=== PATIENT | female | born 1995 | race African-American/Black ===

== ENCOUNTER 2016-08-14 16:14 | Emergency (ER) | payer OTHER ==
[~2016-08-14] VITALS: Ht 167.6 cm; Wt 87.1 kg
[2016-08-14 16:57] LABS: NEG OBC UR NEG; POS OBC UR POS
[2016-08-14 16:59] LABS: BILIRUBIN,URINE SMALL (NEG); GLUCOSE,URINE NEGATIVE (NEG); NITRITE,URINE NEGATIVE (NEG); PROTEIN,URINE >=300 mg/dL (NEG-TRACE)
[2016-08-14 17:10] LABS: BACTERIA,URINE FEW /HPF (0-FEW); RBC,URINE 0 /HPF (0-2); SQUAMOUS EPITHELIAL CELL,UR MANY /LPF
[2016-08-14] MEDS ORDERED: LIDO:MAALOX:DONNATAL 1:1:1 15 ML SINGLE DOSE SWSW ONE (17:30)
[2016-08-14] MEDS ORDERED: FAMOTIDINE 20 MG TABLET. PO ONE (17:30)
[2016-08-14] MEDS ORDERED: ONDANSETRON ODT 4 MG TAB.RAPDIS PO ONE (17:30)
[2016-08-14] MEDS ORDERED: ONDA4TAB7 PO (18:38)
--- NOTE | 2016-08-14 18:38 | PHYS DOC ---
Past Medical History Past Medical History: No Pertinent History Past Surgical History: No Surgical History Alcohol Use: Occasionally Drug Use: None Adult General Chief Complaint Chief Complaint: SYNCOPE HPI HPI 21-year-old female presents with multiple episodes of nausea and vomiting that started yesterday as well as some mild epigastric tenderness. Patient states she has been able to injuring today but does still feel mildly nauseated with minimal epigastric discomfort. Patient is completely nontoxic in appearance and without significant health problems. She denies any vaginal bleeding. She denies any dysuria or hematuria. Review of Systems Review of Systems Constitutional: Denies fever or chills [] Eyes: Denies change in visual acuity, redness, or eye pain [] HENT: Denies nasal congestion or sore throat [] Respiratory: Denies cough or shortness of breath [] Cardiovascular: No additional information not addressed in HPI [] GI: Has abdominal pain, has nausea, denies vomiting, denies bloody stools or diarrhea [] : Denies dysuria or hematuria [] Musculoskeletal: Denies back pain or joint pain [] Integument: Denies rash or skin lesions [] Neurologic: Denies headache, focal weakness or sensory changes [] Endocrine: Denies polyuria or polydipsia [] Current Medications Current Medications Current Medications Medications (Trade) Dose Ordered Sig/Radha Start Time Stop Time Status Last Admin Dose Admin Famotidine (Pepcid) 20 mg 1X ONCE 08/14/16 17:30 08/14/16 17:31 DC 08/14/16 18:05 20 MG Multi-Ingredient Mouthwash/Gargle (Gi Cocktail Single Dose) 15 ml 1X ONCE 08/14/16 17:30 08/14/16 17:31 DC 08/14/16 18:06 15 ML Ondansetron HCl (Zofran Odt) 4 mg 1X ONCE 08/14/16 17:30 08/14/16 17:31 DC 08/14/16 18:05 4 MG Allergies Allergies Allergies Coded Allergies Type Severity Reaction Last Updated Verified No Known Drug Allergies 11/03/15 No Physical Exam Physical Exam Constitutional: Well developed, well nourished, no acute distress, non-toxic appearance. [] HENT: Normocephalic, atraumatic, bilateral external ears normal, oropharynx moist, no oral exudates, nose normal. [] Eyes: PERRLA, EOMI, conjunctiva normal, no discharge. [] Neck: Normal range of motion, no tenderness, supple, no stridor. [] Cardiovascular:Heart rate regular rhythm, no murmur [] Lungs & Thorax: Bilateral breath sounds clear to auscultation [] Abdomen: Bowel sounds normal, soft, moderate epigastric tenderness, no masses, no pulsatile masses. [] Skin: Warm, dry, no erythema, no rash. [] Back: No tenderness, no CVA tenderness. [] Extremities: No tenderness, no cyanosis, no clubbing, ROM intact, no edema. [] Neurologic: Alert and oriented X 3, normal motor function, normal sensory function, no focal deficits noted. [] Psychologic: Affect normal, judgement normal, mood normal. [] Current Patient Data Vital Signs Vital Signs Date Time Temp Pulse Resp B/P Pulse Ox O2 Delivery O2 Flow Rate FiO2 08/14/16 16:41 98.5 86 16 125/74 99 Room Air 98.5 Lab Values Laboratory Tests Test 08/14/16 16:47 Urine Collection Type Unknown Urine Color Dk yellow Urine Clarity Hazy Urine pH 6.0 Urine Specific Hegins 1.025 Urine Protein >=300mg/dL (NEG-TRACE) Urine Glucose (UA) Negativemg/dL (NEG) Urine Ketones (Stick) Tracemg/dL (NEG) Urine Blood Negative (NEG) Urine Nitrite Negative (NEG) Urine Bilirubin Small (NEG) Urine Urobilinogen Dipstick 1.0mg/dL (0.2 mg/dL) Urine Leukocyte Esterase Moderate (NEG) Urine RBC 0/HPF (0-2) Urine WBC 11-20/HPF (0-4) Urine Squamous Epithelial Cells Many/LPF Urine Bacteria Few/HPF (0-FEW) Urine Mucus Marked/LPF Urine Test Negative (NEG) EKG EKG EKG as interpreted by me reveals a sinus rhythm with a rate 73. There are no acute ST findings. Radiology/Procedures Radiology/Procedures [] Course & Med Decision Making Course & Med Decision Making Pertinent Labs and Imaging studies reviewed. (See chart for details) This 21-year-old female is currently nontoxic in appearance will be discharged from the hospital with a course of Zofran and strict instructions to remain well -hydrated at home. There is no indication at this time to perform any laboratory workup. Patient is able to tolerate oral fluids. Patient feels much improved after GI cocktail and Pepcid. She'll be discharged to follow closely with her primary physician next few days for symptom resolution. I believe her symptoms are likely related to a mild gastritis. Duy Disclaimer Duy Disclaimer This electronic medical record was generated, in whole or in part, using a voice recognition dictation system. Departure Departure Impression: Primary Impression: Gastritis Additional Impression: Abdominal pain Disposition: HOME, SELF-CARE Admitting Physician: Other Condition: STABLE Referrals: NO PCP (PCP) Patient Instructions: Abdominal Pain (Nonspecific) Additional Instructions: Please take your zofran as prescribed and continue to stay well hydrated. Continue to drink plenty of fluids. Follow up with your primary doctor in the next 2-3 days. Scripts Ondansetron Hcl (Zofran)4 Mg Tablet4 Mg PO BID PRN NAUSEA/VOMITING #10 TAB Prov:FLAKITA TUCKER DO 08/14/16 Problem Qualifiers FLAKITA TUCKER DO Aug 14, 2016 18:38
[2016-08-14 18:40] VITALS: BP 99/57
--- NOTE | 2016-08-15 06:30 | EKG ---
[facility] [address] [place] [address] Test Date: 2016-08-14 Test Time: 17:00:23 Pat Name: RUTHY HILL Department: Room: Gender: F Envelope Adjuster: : 1995 Requested By: FLAKITA TUCKER Order Number: [id number] Reading MD: Joy Munson Measurements Intervals [place] Rate: 73 P: 54 NM: 142 QRS: 56 QRSD: 76 T: 16 QT: 384 QTc: 427 Interpretive Statements SINUS RHYTHM NO SPECIFIC ECG ABNORMALITIES RI6.01 No previous ECG available for comparison Electronically Signed On 08-17-2016 19:59:38 GUM REMOVER by Joy Munson
== END 2016-08-14 18:54 | disposition home or self-care (01) ==
LOC: ER 16:14
DX: K29.70 Gastritis, unspecified, without bleeding (principal)
CPT/HCPCS: 81001; 81025; 87086; 93005; 99285; Q0162

== ENCOUNTER 2016-10-28 16:27 | Emergency (ER) | payer OTHER ==
[~2016-10-28] VITALS: Ht 167.6 cm; Wt 89.8 kg
[~2016-10-28 16:27] MED LIST: ONDA4TAB7 PO
[2016-10-28 16:48] VITALS: BP 132/79
[2016-10-28] MEDS ORDERED: LIDOCAINE 1%/EPI 1:100,000 20 ML VIAL. INJ ONE (17:30)
[2016-10-28] MEDS ORDERED: DIPHTH,PERTUSS(ACELL),TET TOX 0.5 ML DISP.SYRIN. VAX IM ONE (17:30)
[2016-10-28] MEDS ORDERED: TRAM-29 PO (18:50)
[2016-10-28] MEDS ORDERED: AMOX1TAB11 PO (18:50)
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
== END 2016-10-28 19:02 | disposition home or self-care (01) ==
LOC: ER 16:27
DX: S01.511A Laceration without foreign body of lip, initial encounter (principal); Y04.0XXA Assault by unarmed brawl or fight, initial encounter; Y93.89 Activity, other specified; Y99.8 Other external cause status; Y92.89 Other specified places as the place of occurrence of the external cause
CPT/HCPCS: 12011; 90471; 90715; 99283; J3490

== ENCOUNTER 2016-11-05 19:32 | Emergency (ER) | payer OTHER ==
[~2016-11-05] VITALS: Ht 167.6 cm; Wt 86.2 kg
[~2016-11-05 19:32] MED LIST changes: +AMOX1TAB11 PO; +TRAM-29 PO
[2016-11-05 19:59] VITALS: BP 115/55
--- NOTE | 2016-11-05 20:00 | PHYS DOC ---
Past Medical History Past Medical History: No Pertinent History Past Surgical History: No Surgical History Alcohol Use: Occasionally Drug Use: Marijuana Adult General Chief Complaint Chief Complaint: SUTURE/STAPLE REMOVAL [facility] HPI Patient is a 21 year old female presents emergency Department today requesting sutures be removed from her upper lip. Patient was here 8 days ago for laceration repair. She does not have any current complaints at this time. Review of Systems Review of Systems Constitutional: Denies fever or chills [] Eyes: Denies change in visual acuity, redness, or eye pain [] HENT: Denies nasal congestion or sore throat [] Respiratory: Denies cough or shortness of breath [] Cardiovascular: No additional information not addressed in HPI [] GI: Denies abdominal pain, nausea, vomiting, bloody stools or diarrhea [] : Denies dysuria or hematuria [] Musculoskeletal: Denies back pain or joint pain [] Integument: Denies rash or skin lesions [] Neurologic: Denies headache, focal weakness or sensory changes [] Endocrine: Denies polyuria or polydipsia [] Allergies Allergies Allergies Coded Allergies Type Severity Reaction Last Updated Verified No Known Drug Allergies 11/03/15 No Physical Exam Physical Exam Constitutional: Well developed, well nourished, no acute distress, non-toxic appearance. [] HENT: Normocephalic, atraumatic, bilateral external ears normal, oropharynx moist, no oral exudates, nose normal. Well-healing laceration with sutures in place to her upper lip. There is quite a bit of scab formation over this area. Eyes: PERRLA, EOMI, conjunctiva normal, no discharge. [] Neck: Normal range of motion, no tenderness, supple, no stridor. [] Cardiovascular:Heart rate regular rhythm, no murmur [] Lungs & Thorax: Bilateral breath sounds clear to auscultation [] Abdomen: Bowel sounds normal, soft, no tenderness, no masses, no pulsatile masses. [] Skin: Warm, dry, no erythema, no rash. [] Back: No tenderness, no CVA tenderness. [] Extremities: No tenderness, no cyanosis, no clubbing, ROM intact, no edema. [] Neurologic: Alert and oriented X 3, normal motor function, normal sensory function, no focal deficits noted. [] Psychologic: Affect normal, judgement normal, mood normal. [] Current Patient Data Vital Signs Vital Signs Date Time Temp Pulse Resp B/P Pulse Ox O2 Delivery O2 Flow Rate FiO2 11/05/16 19:59 97.8 75 18 97 Room Air 97.8 EKG EKG [] Radiology/Procedures Radiology/Procedures Procedure note: 6, 6-O nylon sutures were removed from patient's upper lip without difficulty. There was no wound margin separation, purulent drainage, erythema or swelling. Patient tolerated the procedure well. Course & Med Decision Making Course & Med Decision Making Pertinent Labs and Imaging studies reviewed. (See chart for details) [] Dragon Disclaimer Dragon Disclaimer This electronic medical record was generated, in whole or in part, using a voice recognition dictation system. Departure Departure Impression: Primary Impression: Visit for suture removal Disposition: 01 HOME, SELF-CARE Condition: IMPROVED Referrals: NO PCP (PCP) Patient Instructions: Suture Removal-Brief Additional Instructions: 1. Review the discharge instructions provided for self-care and reasons to return the emergency department. 2. Follow-up with primary care provider if any questions or concerns about your continued wound healing. CHEO RILEY Nov 05, 2016 20:00
== END 2016-11-05 20:30 | disposition home or self-care (01) ==
LOC: ER 19:32
DX: S01.511D Laceration without foreign body of lip, subsequent encounter (principal); F12.10 Cannabis abuse, uncomplicated; W45.8XXD Other foreign body or object entering through skin, subsequent encounter; Y93.89 Activity, other specified; Y92.89 Other specified places as the place of occurrence of the external cause; Y99.8 Other external cause status
CPT/HCPCS: 99281

== ENCOUNTER 2017-07-04 19:06 | Emergency (ER) | payer OTHER ==
[~2017-07-04] VITALS: Ht 167.6 cm; Wt 86.2 kg
[~2017-07-04 19:06] MED LIST changes: -TRAM-29 PO; +TRAM-48 PO
[2017-07-04 19:10] VITALS: BP 135/73
[2017-07-04] MEDS ORDERED: METH4TAB2 PO (19:30)
[2017-07-04] MEDS ORDERED: CYCL10TA2 PO (19:30)
[2017-07-04] MEDS ORDERED: IBUP-1060 PO (19:30)
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
== END 2017-07-04 19:37 | disposition home or self-care (01) ==
LOC: ER 19:06
DX: M25.512 Pain in left shoulder (principal); G89.29 Other chronic pain; F12.10 Cannabis abuse, uncomplicated
CPT/HCPCS: 99283

== ENCOUNTER 2017-08-01 16:13 | Emergency (ER) | payer OTHER ==
[2017-08-01 16:42] LABS: URINE HCG POC HCG NEGATIVE (Negative)
== END 2017-08-01 17:33 | disposition home or self-care (01) ==
LOC: ER 16:13
DX: M54.6 Pain in thoracic spine (principal); M79.602 Pain in left arm; F12.10 Cannabis abuse, uncomplicated
CPT/HCPCS: 73030; 81025; 99284

== ENCOUNTER 2018-04-11 15:27 | Emergency (ER) | payer OTHER ==
[2017-08-01 16:36] VITALS: BP 136/72
[~2018-04-11 15:27] MED LIST changes: +CYCL10TA2 PO; +IBUP-1060 PO; +METH4TAB2 PO; +NAPR-514 PO
== END 2018-04-11 17:40 | disposition left against medical advice (07) ==
LOC: ER 15:27
DX: R10.9 Unspecified abdominal pain (principal); R11.10 Vomiting, unspecified; Z53.21 Procedure and treatment not carried out due to patient leaving prior to being seen by health care provider

== ENCOUNTER 2018-12-27 18:56 | Emergency (ER) | payer OTHER ==
[~2018-12-27] VITALS: Ht 167.6 cm; Wt 77.1 kg
[2018-12-27 19:25] VITALS: BP 123/75
[2018-12-27] MEDS ORDERED: AZITHROMYCIN 250 MG TABLET. PO ONE (20:15)
[2018-12-27] MEDS ORDERED: cefTRIAXone IM 250 MG VIAL IM ONE (20:15)
[2018-12-27 20:53] LABS: BILIRUBIN,URINE SMALL (NEG); CLARITY,URINE CLOUDY; COLOR,URINE YELLOW; NITRITE,URINE NEGATIVE (NEG); PROTEIN,URINE >=300 mg/dL (NEG-TRACE)
[2018-12-27 21:00] LABS: BACTERIA,URINE FEW /HPF (0-FEW); RBC,URINE 0 /HPF (0-2); SQUAMOUS EPITHELIAL CELL,UR OCC /LPF
[2018-12-27 21:01] LABS: AMORPHOUS SEDIMENT,UR PRESENT /HPF
[2018-12-27] MEDS ORDERED: METR500T PO (21:12)
--- NOTE | 2018-12-27 21:12 | PHYS DOC ---
Past Medical History Past Medical History: No Pertinent History (EDWIN CAMARA) Past Surgical History: No Surgical History (EDWIN CAMARA) Alcohol Use: Occasionally Drug Use: Marijuana Social History Narrative: Last THC use today 12/27/18 (EDWIN CAMARA) Adult General Chief Complaint Chief Complaint: VAGINAL PROBLEM HPI HPI Patient is a 23 year old F who is here with white vaginal discharge and B labia pain. She states it has been going on for over a week but she is concerned it is getting worse. She has had a new sexual partner so was concerned about STDs. She is currently not on control pills. Her LMP was mid November. (EDWIN CAMARA) Review of Systems Review of Systems Constitutional: Denies fever or chills Respiratory: Denies cough or shortness of breath Cardiovascular: Denies chest pain. GI: Denies abdominal pain, nausea, vomiting, bloody stools or diarrhea. Reports constipation : Denies dysuria or hematuria. Reports vaginal discharge and vaginal pain. Musculoskeletal: Denies back pain or joint pain Integument: Denies rash or skin lesions Neurologic: Denies headache, focal weakness or sensory changes Endocrine: Denies polyuria or polydipsia All other systems were reviewed and found to be within normal limits, except as documented in this note. (EDWIN CAMARA) Current Medications Current Medications Current Medications Medications (Trade) Dose Ordered Sig/Radha Start Time Stop Time Status Last Admin Dose Admin Azithromycin (Zithromax) 1,000 mg 1X ONCE 12/27/18 20:15 12/27/18 20:18 DC 12/27/18 20:43 1,000 MG Ceftriaxone Sodium (Rocephin Im) 250 mg 1X ONCE 12/27/18 20:15 12/27/18 20:18 DC 12/27/18 20:44 250 MG (ALESSIO CARLSON MD) Allergies Allergies Allergies Coded Allergies Type Severity Reaction Last Updated Verified No Known Drug Allergies 11/03/15 No (ALESSIO CARLSON MD) Physical Exam Physical Exam Constitutional: Well developed, well nourished, no acute distress, non-toxic appearance. HENT: Normocephalic, atraumatic Neck: Normal range of motion, no tenderness, supple, no stridor. Cardiovascular:Heart rate regular rhythm, no murmur Lungs & Thorax: Bilateral breath sounds clear to auscultation Abdomen: Bowel sounds normal, soft, no tenderness, no masses, no pulsatile masses. Skin: Warm, dry, no erythema, no rash. Back: No tenderness, no CVA tenderness. Neurologic: Alert and oriented X 3 Psychologic: Affect normal, judgement normal, mood normal. : Associate Automation Engineer present: Ester, labia mildly inflamed, white thick discharge noted, no cervical motion tenderness and no adnexal tenderness, no lesions or sores noted. (EDWIN CAMARA) Current Patient Data Vital Signs Vital Signs Date Time Temp Pulse Resp B/P (MAP) Pulse Ox O2 Delivery O2 Flow Rate FiO2 12/27/18 19:25 98.4 87 15 123/75 (91) 97 Room Air 98.4 (ALESSIO CARLSON MD) Lab Values Laboratory Tests Test 12/27/18 20:40 12/27/18 20:47 Urine Color Yellow Urine Clarity Cloudy Urine pH 6.0 Urine Specific [place] 1.020 Urine Protein >=300 mg/dL (NEG-TRACE) Urine Glucose (UA) Negative mg/dL (NEG) Urine Ketones (Stick) Negative mg/dL (NEG) Urine Blood Negative (NEG) Urine Nitrite Negative (NEG) Urine Bilirubin Small (NEG) Urine Urobilinogen Dipstick 1.0 mg/dL (0.2 mg/dL) Urine Leukocyte Esterase Small (NEG) Urine RBC 0 /HPF (0-2) Urine WBC 5-10 /HPF (0-4) Urine Squamous Epithelial Cells Occ /LPF Urine Amorphous Sediment Present /HPF Urine Bacteria Few /HPF (0-FEW) Urine Mucus Slight /LPF POC Urine HCG, Qualitative Hcg negative (Negative) Microbiology 12/27/18 Wet Prep - Final, Complete (ALESSIO CARLSON MD) EKG EKG [] (EDWNI CAMARA) Radiology/Procedures Radiology/Procedures [] (EDWIN CAMARA) Course & Med Decision Making Course & Med Decision Making Pertinent Labs and Imaging studies reviewed. (See chart for details) Pt treated with Rocephin 250mg IM and Azithromycin 1000mg PO. Discussed that STD tests are pending and she will be contacted if they are positive. Pt did test positive for BV here in ER, which could be source of discharge and discomfort. Will treat with Flagyl and have recommended f/u with PCP or fibreglass laminator for recheck. Pt's urine is contaminated and no sign of acute infection, neg test. Pt did mention that she has been constipated and have recommended OTC Miralax. (EDWIN CAMARA) Course & Med Decision Making Staff Physician Addendum: I was working in the ER during the course of this patient's visit. I was available for consultation as needed, but I was not directly involved in the care of this patient. (ALESSIO CARLSON MD) Dragon Disclaimer Dragon Disclaimer This electronic medical record was generated, in whole or in part, using a voice recognition dictation system. (EDWIN CAMARA) Departure Departure Impression: Primary Impression: Bacterial vaginitis Additional Impression: Concern about STD in female without diagnosis Disposition: HOME, SELF-CARE Condition: STABLE Referrals: MELISSA ALEMAN MD (PCP) Patient Instructions: Bacterial Vaginosis, [id number], Sexually Transmitted Disease Additional Instructions: You were tested for Gonorrhea, Chlamydia and Trichomonas today and those results are pending. You were treated with antibiotics that cover either Gonorrhea or Chlamydia. Your tests today showed positive for Bacterial Vaginosis, which is not an STD but similar to yeast in that it can cause discomfort and discharge. Scripts Metronidazole (FLAGYL) 500 Mg Tablet 1 TAB PO BID, #14 TAB Prov: EDWIN CAMARA 12/27/18 Problem Qualifiers EDWIN CAMARA Dec 27, 2018 21:12 ALESSIO CARLSON MD Dec 28, 2018 04:56
[2018-12-30 19:15] LABS: GC PROBE Negative (Negative)
== END 2018-12-27 21:21 | disposition home or self-care (01) ==
LOC: ER 18:56
DX: N76.0 Acute vaginitis (principal); B96.89 Other specified bacterial agents as the cause of diseases classified elsewhere; R10.2 Pelvic and perineal pain
CPT/HCPCS: 81001; 81025; 87086; 87491; 87591; 96372; 99284; J0696; Q0111; Q0144

== ENCOUNTER 2019-08-16 12:38 | Emergency (ER) | payer OTHER ==
[~2019-08-16 12:38] MED LIST changes: +METR500T PO
== END 2019-08-16 13:15 | disposition left against medical advice (07) ==
LOC: ER 12:38
DX: O46.90 Antepartum hemorrhage, unspecified, unspecified trimester (principal); Z3A.00 Weeks of gestation of pregnancy not specified; Z53.21 Procedure and treatment not carried out due to patient leaving prior to being seen by health care provider

== ENCOUNTER 2019-08-16 14:55 | Emergency (ER) | payer OTHER ==
[~2019-08-16] VITALS: Ht 167.6 cm; Wt 86.3 kg
[2019-08-16 15:17] LABS: BILIRUBIN,URINE NEGATIVE (NEG); CLARITY,URINE CLOUDY; COLOR,URINE YELLOW; NITRITE,URINE NEGATIVE (NEG); PROTEIN,URINE NEGATIVE (NEG-TRACE); UROBILINOGEN,URINE 0.2 mg/dL (0.2 mg/dL)
[2019-08-16 15:33] LABS: BASO % 1 % (0-3); EOS # 0.2 x10^3/uL (0.0-0.7); EOS % 3 % (0-3); HEMOGLOBIN 13.2 g/dL (12.0-15.5); LYMPH % 41 % (24-48); MEAN CORPUSCULAR HEMOGLOBIN 31 pg (25-35); MEAN CORPUSCULAR HGB CONC 34 g/dL (31-37); MEAN CORPUSCULAR VOLUME 93 fL (79-100); MONO # 0.3 x10^3/uL (0.0-1.1); MONO % 7 % (0-9); NEUT # 2.5 x10^3/uL (1.8-7.7); NEUT % 49 % (31-73); PLATELET COUNT 176 x10^3/uL (140-400); RED CELL DISTRIBUTION WIDTH 12.5 % (11.5-14.5)
--- NOTE | 2019-08-16 15:33 | PHYS DOC ---
Past Medical History Past Medical History: No Pertinent History Past Surgical History: No Surgical History Alcohol Use: Occasionally Drug Use: Marijuana Adult General Chief Complaint Chief Complaint: VAGINAL BLEEDING HPI HPI Patient is a 24 year old female who presents with patient went to her primary care doctor yesterday and was treated for sexual transmitted diseases. Patient is states her last period was in May. She states she has a appointment Thursday at with a OB doctor for the first time. Patient states since June she's had vaginal spotting. She states that it comes and goes throughout the day. She states she will wear a pad at times. She denies any abdominal pain, nausea, vomiting, fever, back pain, dysuria, chest pain, shortness of air. Review of Systems Review of Systems : Vaginal bleeding. Denies dysuria or hematuria [] All other systems were reviewed and found to be within normal limits, except as documented in this note. Allergies Allergies Allergies Coded Allergies Type Severity Reaction Last Updated Verified No Known Drug Allergies 11/03/15 No Physical Exam Physical Exam Constitutional: Well developed, well nourished, no acute distress, non-toxic appearance. [] HENT: Normocephalic, atraumatic, bilateral external ears normal, oropharynx mois t, no oral exudates, nose normal. [] Eyes: PERRLA, EOMI, conjunctiva normal, no discharge. [] Neck: Normal range of motion, no tenderness, supple, no stridor. [] Cardiovascular:Heart rate regular rhythm, no murmur [] Lungs & Thorax: Bilateral breath sounds clear to auscultation [] Abdomen: Bowel sounds normal, soft, no tenderness, no masses, no pulsatile masses. [] Skin: Warm, dry, no erythema, no rash. [] Back: No tenderness, no CVA tenderness. [] Extremities: No tenderness, no cyanosis, no clubbing, ROM intact, no edema. [] Neurologic: Alert and oriented X 3, normal motor function, normal sensory function, no focal deficits noted. [] Psychologic: Affect normal, judgement normal, mood normal. Normal Physical Exam [] Current Patient Data Vital Signs Vital Signs Date Time Temp Pulse Resp B/P (MAP) Pulse Ox O2 Delivery O2 Flow Rate FiO2 08/16/19 15:05 98.1 94 16 130/58 (82) 100 Room Air 98.1 Lab Values Laboratory Tests Test 1/21/20 14:58 08/16/19 15:10 08/16/19 15:15 Urine Collection Type Unknown Urine Color Yellow Urine Clarity Cloudy Urine pH 7.0 Urine Specific [place] 1.010 Urine Protein Negative mg/dL (NEG-TRACE) Urine Glucose (UA) Negative mg/dL (NEG) Urine Ketones (Stick) Negative mg/dL (NEG) Urine Blood Large (NEG) Urine Nitrite Negative (NEG) Urine Bilirubin Negative (NEG) Urine Urobilinogen Dipstick 0.2 mg/dL (0.2 mg/dL) Urine Leukocyte Esterase Negative (NEG) Urine RBC 0 /HPF (0-2) Urine WBC 0 /HPF (0-4) Urine Squamous Epithelial Cells Occ /LPF Urine Bacteria 0 /HPF (0-FEW) POC Urine HCG, Qualitative Hcg positive (Negative) White Blood Count 5.0 x10^3/uL (4.0-11.0) Red Blood Count 4.20 x10^6/uL (3.50-5.40) Hemoglobin 13.2 g/dL (12.0-15.5) Hematocrit 39.0 % (36.0-47.0) Mean Corpuscular Volume 93 fL (79-100) Mean Corpuscular Hemoglobin 31 pg (25-35) Mean Corpuscular Hemoglobin Concent 34 g/dL (31-37) Red Cell Distribution Width 12.5 % (11.5-14.5) Platelet Count 176 x10^3/uL (140-400) Neutrophils (%) (Auto) 49 % (31-73) Lymphocytes (%) (Auto) 41 % (24-48) Monocytes (%) (Auto) 7 % (0-9) Eosinophils (%) (Auto) 3 % (0-3) Basophils (%) (Auto) 1 % (0-3) Neutrophils # (Auto) 2.5 x10^3/uL (1.8-7.7) Lymphocytes # (Auto) 2.0 x10^3/uL (1.0-4.8) Monocytes # (Auto) 0.3 x10^3/uL (0.0-1.1) Eosinophils # (Auto) 0.2 x10^3/uL (0.0-0.7) Basophils # (Auto) 0.0 x10^3/uL (0.0-0.2) Maternal Serum HCG Beta Subunit 123 mIU/mL (0-5) H Sodium Level 139 mmol/L (136-145) Potassium Level 4.2 mmol/L (3.5-5.1) Chloride Level 104 mmol/L (98-107) Carbon Dioxide Level 28 mmol/L (21-32) Anion Gap 7 (6-14) Blood Urea Nitrogen 7 mg/dL (7-20) Creatinine 0.7 mg/dL (0.6-1.0) Estimated GFR (Cockcroft-Gault) 125.5 BUN/Creatinine Ratio 10 (6-20) Glucose Level 77 mg/dL (70-99) Calcium Level 8.5 mg/dL (8.5-10.1) Total Bilirubin 1.1 mg/dL (0.2-1.0) H Aspartate Amino Transferase (AST) 29 U/L (15-37) Alanine Aminotransferase (ALT) 34 U/L (14-59) Alkaline Phosphatase 61 U/L (46-116) Total Protein 7.0 g/dL (6.4-8.2) Albumin 3.8 g/dL (3.4-5.0) Albumin/Globulin Ratio 1.2 (1.0-1.7) Laboratory Tests 08/16/19 15:15 Laboratory Tests 08/16/19 15:15 EKG EKG [] Radiology/Procedures Radiology/Procedures [] Impressions: [facility] [address] [place] [address] IMAGING REPORT Signed PATIENT: RUTHY HILL ACCOUNT: [id number] : 1995 LOCATION: ER AGE: 24 SEX: F EXAM STATUS: REG ER ORD. PHYSICIAN: TERRY OLIVER APRN REASON: vag bleeding PROCEDURE: OB <14 WKS W/TV OB <14 WKS W/TV History: Vaginal bleeding. Comparison: None. Technique: Grayscale and color Doppler imaging of the pelvis was performed using transabdominal and transvaginal technique. Findings: The uterus measures 8.3 x 4.0 x 5.2 cm in length. No evidence of intrauterine gestational sac. Right ovary measures 3.2 x 2.1 x 3.2 cm. The right ovarian complicated follicle measures 1.8 cm. Left ovary measures 2.1 x 1.6 x 2.4 cm and is unremarkable. No adnexal masses are seen. Small amount of free fluid within the posterior cul-de-sac. IMPRESSION: 1. No intrauterine gestational sac is identified, may relate to early . Recommend close interval ultrasound follow-up and serial beta-hCGs. 2. Small complicated free fluid within the pelvis. 3. Small complicated right ovarian follicle. Electronically signed by: Brittanie Flores DO (08/16/2019 4:34 PM) [id number] DICTATED and SIGNED BY: BRITTANIE FLORES DO DATE: 08/16/19 1634 Course & Med Decision Making Course & Med Decision Making Abdomen is soft and nontender. Alert and oriented. Skin pink warm and dry. Vital signs within normal limits. Denies any dizziness or headaches. She states that she's been having the spotting since June but she's never been checked out for before. She states she is was given a ultrasound done today but had to be rescheduled. Denies any pain. I have gone over US findings with Dr Batista. Patient to follow up with her OB as scheduled on Thursday. 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 Bimanual: No adnexal masses or tenderness, No CMT Dragon Disclaimer Dragon Disclaimer This electronic medical record was generated, in whole or in part, using a voice recognition dictation system. Departure Departure Impression: Primary Impression: Ovarian cyst Additional Impression: Vaginal bleeding during Disposition: HOME, SELF-CARE Condition: STABLE Referrals: UNKNOWN PCP NAME (PCP) Patient Instructions: Ovarian Cyst, [id number], Vaginal Bleeding During , First Trimester Additional Instructions: Follow-up with her OB as scheduled. Drink plenty of fluids. Do not have any sexual intercourse until you are seen by her OB doctor. Problem Qualifiers Primary Impression: Ovarian cyst Laterality: right Qualified Codes: N83.201 - Unspecified ovarian cyst, right side TERRY OLIVER APRN Aug 16, 2019 15:33
[2019-08-16 15:50] LABS: BACTERIA,URINE 0 /HPF (0-FEW); RBC,URINE 0 /HPF (0-2); SQUAMOUS EPITHELIAL CELL,UR OCC /LPF; WBC,URINE 0 /HPF (0-4)
[2019-08-16 15:57] LABS: CALCIUM 8.5 mg/dL (8.5-10.1); CREATININE 0.7 mg/dL (0.6-1.0); GFR 125.5; POTASSIUM 4.2 mmol/L (3.5-5.1)
[2019-08-16 16:02] LABS: ALBUMIN 3.8 g/dL (3.4-5.0); ALBUMIN/GLOBULIN RATIO 1.2 (1.0-1.7); TOTAL BILIRUBIN 1.1 mg/dL (0.2-1.0)
[2019-08-16 16:37] VITALS: BP 127/65
--- NOTE | 2019-08-16 16:37 | RAD ---
OB <14 WKS W/TV History: Vaginal bleeding. Comparison: None. Technique: Grayscale and color Doppler imaging of the pelvis was performed using transabdominal and transvaginal technique. Findings: The uterus measures 8.3 x 4.0 x 5.2 cm in length. No evidence of intrauterine gestational sac. Right ovary measures 3.2 x 2.1 x 3.2 cm. The right ovarian complicated follicle measures 1.8 cm. Left ovary measures 2.1 x 1.6 x 2.4 cm and is unremarkable. No adnexal masses are seen. Small amount of free fluid within the posterior cul-de-sac. IMPRESSION: 1. No intrauterine gestational sac is identified, may relate to early . Recommend close interval ultrasound follow-up and serial beta-hCGs. 2. Small complicated free fluid within the pelvis. 3. Small complicated right ovarian follicle. Electronically signed by: Harsh Flores DO (08/16/2019 4:34 PM) [id number]
== END 2019-08-16 16:53 | disposition home or self-care (01) ==
LOC: ER 14:55
DX: O34.81 Maternal care for other abnormalities of pelvic organs, first trimester (principal); N83.201 Unspecified ovarian cyst, right side; O46.91 Antepartum hemorrhage, unspecified, first trimester; Z3A.00 Weeks of gestation of pregnancy not specified
CPT/HCPCS: 36415; 76801; 76817; 80053; 81001; 81025; 84702; 85025; 86850; 86900; 86901; 99285-25

== ENCOUNTER 2019-10-02 15:59 | Emergency (ER) | payer OTHER ==
[~2019-10-02] VITALS: Ht 162.6 cm; Wt 85.0 kg
[2019-10-02] MEDS ORDERED: traMADol 50 MG TABLET PO ONE (16:30)
[2019-10-02] MEDS ORDERED: metroNIDAZOLE 500 MG TABLET PO ONE (16:30)
[2019-10-02] MEDS ORDERED: ONDANSETRON ODT 4 MG TAB.RAPDIS. PO ONE (16:30)
[2019-10-02] MEDS ORDERED: cefTRIAXone IM 250 MG VIAL IM ONE (16:30)
[2019-10-02] MEDS ORDERED: AZITHROMYCIN 250 MG TABLET. PO ONE (16:30)
[2019-10-02 16:36] LABS: BILIRUBIN,URINE NEGATIVE (NEG); CLARITY,URINE CLEAR; COLOR,URINE YELLOW; NITRITE,URINE NEGATIVE (NEG); PH,URINE 6.5; PROTEIN,URINE NEGATIVE (NEG-TRACE)
[2019-10-02 16:43] LABS: BARBITURATES NEG (NEG); BENZODIAZEPINES NEG (NEG); CANNABINOIDS POS (NEG); COCAINE NEG (NEG); METHADONE NEG (NEG); OPIATES NEG (NEG); PHENCYCLIDINE NEG (NEG)
[2019-10-02 16:44] LABS: AMPHETAMINE/METHAMPHETAMINE NEG (NEG)
[2019-10-02 16:48] LABS: BACTERIA,URINE MANY /HPF (0-FEW); RBC,URINE 0 /HPF (0-2); SQUAMOUS EPITHELIAL CELL,UR MANY /LPF
--- NOTE | 2019-10-02 19:11 | RAD ---
Exam: Ultrasound pelvis Indication: Pelvic pain Technique: Real-time grayscale and color Doppler images of the pelvis were obtained by the department practice specialist. Comparisons: None FINDINGS: Uterus measures 8.3 x 4.0 x 3.7 cm. Endometrium is approximately 3 mm in thickness. Right ovary is complex in appearance measuring 6.6 x 6.8 x 5.8 cm. Vascular flow is noted within the right ovary. Left ovary measures 2.0 x 1.9 x 1.6 cm. Vascular flow is noted within the left ovary. Moderate amount of complex free fluid is seen in the pelvis. IMPRESSION: 1. Right ovary has an enlarged and complex appearance measuring 6.6 x 6.8 x 5.8 cm. Vascular flow is seen within the right ovary. 2. Moderate amount of complex free fluid in the pelvis. CT is recommended for further evaluation. 3. Normal sonographic appearance of the uterus and left ovary FOR INTERNAL CODING PURPOSES Critical result: Findings discussed with SHANNON TY at 10/02/2019 7:05 PM. RESULT CODE: (C) Electronically signed by: Louie Gu MD (10/02/2019 7:07 PM) [id number]
[2019-10-02] MEDS ORDERED: MORPHINE SULFATE 10 MG/ML VIAL. IV ONE (19:15)
[2019-10-02] MEDS ORDERED: ONDANSETRON PF 4 MG/2 ML VIAL. IVP ONE (19:15)
[2019-10-02 19:27] LABS: BASO % 0 % (0-3); EOS # 0.1 x10^3/uL (0.0-0.7); EOS % 1 % (0-3); HEMATOCRIT 38.9 % (36.0-47.0); HEMOGLOBIN 13.1 g/dL (12.0-15.5); LYMPH # 1.9 x10^3/uL (1.0-4.8); LYMPH % 26 % (24-48); MEAN CORPUSCULAR HEMOGLOBIN 31 pg (25-35); MEAN CORPUSCULAR HGB CONC 34 g/dL (31-37); MEAN CORPUSCULAR VOLUME 91 fL (79-100); MONO # 0.4 x10^3/uL (0.0-1.1); MONO % 6 % (0-9); NEUT # 4.7 x10^3/uL (1.8-7.7); NEUT % 66 % (31-73); PLATELET COUNT 174 x10^3/uL (140-400); RED BLOOD COUNT 4.29 x10^6/uL (3.50-5.40); RED CELL DISTRIBUTION WIDTH 12.4 % (11.5-14.5)
[2019-10-02] MEDS ORDERED: IOHEXOL 300 MG/ML 100ML VIAL. IV ONE (19:30)
[2019-10-02 19:36] LABS: CALCIUM 8.9 mg/dL (8.5-10.1); CREATININE 0.7 mg/dL (0.6-1.0); GFR 125.5; POTASSIUM 3.8 mmol/L (3.5-5.1)
[2019-10-02 19:42] LABS: ALBUMIN 3.8 g/dL (3.4-5.0); ALBUMIN/GLOBULIN RATIO 1.2 (1.0-1.7); TOTAL BILIRUBIN 1.2 mg/dL (0.2-1.0); TOTAL PROTEIN 6.9 g/dL (6.4-8.2)
--- NOTE | 2019-10-02 20:18 | RAD ---
Exam: CT of abdomen and pelvis with contrast INDICATION: Pelvic pain TECHNIQUE: Sequential axial images through the pelvis obtained only the administration of 75 mL of Omni 300 IV contrast. Sagittal and coronal reformatted images were reconstructed from the axial data and reviewed. Comparisons: Ultrasound same day FINDINGS: Heart size is normal. No pericardial effusion. Visualized lung bases are clear. No pleural effusion. Liver, spleen, pancreas, gallbladder and adrenals are unremarkable. Kidneys demonstrate symmetric enhancement. No perinephric inflammation or hydronephrosis. No renal or ureteral calculi are identified. Bladder is decompressed not well evaluated. Uterus not enlarged. There is a 2 cm cystic lesion at the right adnexa, likely ovarian in etiology. There is redemonstration of enlarged right adnexal mass measuring up to 5.[address] Large and small bowel are unremarkable. Appendix is normal. No free intra-abdominal air. There is a small amount of free fluid noted within the pelvis. No free intra-abdominal air. Abdominal aorta has a normal course and caliber. Abdominal vasculature is patent. No enlarged abdominal lymph nodes are identified. No suspicious osseous lesions or acute fractures. IMPRESSION: Redemonstration of an enlarged right adnexal mass with internal cystic areas. There is only a small amount of free fluid in the pelvis. Findings could relate to intraovarian lesion/hemorrhagic cyst. Short-term follow-up ultrasound to reassess in 3-4 weeks is recommended. Alternatively MRI pelvis with coronal can BE used for follow-up. Exposure: One or more of the following in the visualized dose reduction techniques were utilized for this examination: 1. Automated exposure control 2. Adjustment of the MA and/or KV according to patient size 3. Use of iterative of reconstructive technique Electronically signed by: Louie Gu MD (10/02/2019 8:15 PM) [id number]
[2019-10-02] MEDS ORDERED: TRAM50TA PO (21:14)
--- NOTE | 2019-10-02 21:14 | PHYS DOC ---
Past Medical History Past Medical History: No Pertinent History Past Surgical History: No Surgical History Smoking Status: Never Smoker Alcohol Use: Occasionally Drug Use: Marijuana Adult General Chief Complaint Chief Complaint: VAGINAL PROBLEM HPI HPI Patient is a 24 year old female with no significant medical history who presents to the ED today complaining of 10 out of 10 "pelvic bone pain" that began 1 day ago. Patient denies any exacerbating or relieving factors to her pain. She is thrashing around the bed hard to examine at times. Denies any chance she is . Review of Systems Review of Systems Constitutional: Denies fever or chills [] Eyes: Denies change in visual acuity, redness, or eye pain [] HENT: Denies nasal congestion or sore throat [] Respiratory: Denies cough or shortness of breath [] Cardiovascular: No additional information not addressed in HPI [] GI: Reports pelvic pain. Denies nausea, vomiting, bloody stools or diarrhea [] : Denies dysuria or hematuria [] Musculoskeletal: Denies back pain or joint pain [] Integument: Denies rash or skin lesions [] Neurologic: Denies headache, focal weakness or sensory changes [] All other systems were reviewed and found to be within normal limits, except as documented in this note. Current Medications Current Medications Current Medications Medications (Trade) Dose Ordered Sig/Radha Start Time Stop Time Status Last Admin Dose Admin Azithromycin (Zithromax) 1,000 mg 1X ONCE 10/02/19 16:30 10/02/19 16:31 DC 10/02/19 16:34 1,000 MG Ceftriaxone Sodium (Rocephin Im) 250 mg 1X ONCE 10/02/19 16:30 10/02/19 16:31 DC 10/02/19 16:34 250 MG Iohexol (Omnipaque 300 Mg/ml) 75 ml 1X ONCE 10/02/19 19:30 10/02/19 19:31 DC 10/02/19 19:50 75 ML Metronidazole (Flagyl) 2,000 mg 1X ONCE 10/02/19 16:30 10/02/19 16:31 DC 10/02/19 16:35 2,000 MG Morphine Sulfate (Morphine Sulfate) 5 mg 1X ONCE 10/02/19 19:15 10/02/19 19:26 DC 10/02/19 19:40 5 MG Ondansetron HCl (Zofran Odt) 4 mg 1X ONCE 10/02/19 16:30 10/02/19 16:31 DC 10/02/19 16:35 4 MG Ondansetron HCl (Zofran) 4 mg 1X ONCE 10/02/19 19:15 10/02/19 19:26 DC 10/02/19 19:39 4 MG Tramadol HCl (Ultram) 50 mg 1X ONCE 10/02/19 16:30 10/02/19 16:31 DC 10/02/19 16:35 50 MG Allergies Allergies Allergies Coded Allergies Type Severity Reaction Last Updated Verified No Known Drug Allergies 11/03/15 No Physical Exam Physical Exam Constitutional: Well developed, well nourished, no acute distress, non-toxic a ppearance. [] HENT: Normocephalic, atraumatic, bilateral external ears normal, oropharynx moist, no oral exudates, nose normal. [] Eyes: PERRLA, EOMI, conjunctiva normal, no discharge. [] Neck: Normal range of motion, no tenderness, supple, no stridor. [] Cardiovascular:Heart rate regular rhythm, no murmur [] Lungs & Thorax: Bilateral breath sounds clear to auscultation [] Abdomen: Bowel sounds normal, soft, no tenderness, no masses, no pulsatile masses. [] Pelvic exam External pelvic appears normal, cervix is visualized, appears erythematous, moderate CMT, moderate bilateral adnexal tenderness. Skin: Warm, dry, no erythema, no rash. [] Back: No tenderness, no CVA tenderness. [] Extremities: No tenderness, no cyanosis, no clubbing, ROM intact, no edema. [] Neurologic: Alert and oriented X 3, normal motor function, normal sensory function, no focal deficits noted. [] Psychologic: Flat affect, patient thrashing around in bed Current Patient Data Vital Signs Vital Signs Date Time Temp Pulse Resp B/P (MAP) Pulse Ox O2 Delivery O2 Flow Rate FiO2 10/02/19 19:40 16 100 Room Air 10/02/19 18:08 60 130/61 (84) 10/02/19 16:20 98.0 98.0 Lab Values Laboratory Tests Test 10/02/19 15:28 10/02/19 16:26 10/02/19 19:17 POC Urine HCG, Qualitative Hcg negative (Negative) Urine Collection Type Unknown Urine Color Yellow Urine Clarity Clear Urine pH 6.5 Urine Specific [place] 1.025 Urine Protein Negative mg/dL (NEG-TRACE) Urine Glucose (UA) Negative mg/dL (NEG) Urine Ketones (Stick) Trace mg/dL (NEG) Urine Blood Negative (NEG) Urine Nitrite Negative (NEG) Urine Bilirubin Negative (NEG) Urine Urobilinogen Dipstick 1.0 mg/dL (0.2 mg/dL) Urine Leukocyte Esterase Trace (NEG) Urine RBC 0 /HPF (0-2) Urine WBC 1-4 /HPF (0-4) Urine Squamous Epithelial Cells Many /LPF Urine Bacteria Many /HPF (0-FEW) Urine Mucus Marked /LPF Urine Opiates Screen Neg (NEG) Urine Methadone Screen Neg (NEG) Urine Barbiturates Neg (NEG) Urine Phencyclidine Screen Neg (NEG) Urine Amphetamine/Methamphetamine Neg (NEG) Urine Benzodiazepines Screen Neg (NEG) Urine Cocaine Screen Neg (NEG) Urine Cannabinoids Screen Pos (NEG) Urine Ethyl Alcohol Neg (NEG) White Blood Count 7.0 x10^3/uL (4.0-11.0) Red Blood Count 4.29 x10^6/uL (3.50-5.40) Hemoglobin 13.1 g/dL (12.0-15.5) Hematocrit 38.9 % (36.0-47.0) Mean Corpuscular Volume 91 fL (79-100) Mean Corpuscular Hemoglobin 31 pg (25-35) Mean Corpuscular Hemoglobin Concent 34 g/dL (31-37) Red Cell Distribution Width 12.4 % (11.5-14.5) Platelet Count 174 x10^3/uL (140-400) Neutrophils (%) (Auto) 66 % (31-73) Lymphocytes (%) (Auto) 26 % (24-48) Monocytes (%) (Auto) 6 % (0-9) Eosinophils (%) (Auto) 1 % (0-3) Basophils (%) (Auto) 0 % (0-3) Neutrophils # (Auto) 4.7 x10^3/uL (1.8-7.7) Lymphocytes # (Auto) 1.9 x10^3/uL (1.0-4.8) Monocytes # (Auto) 0.4 x10^3/uL (0.0-1.1) Eosinophils # (Auto) 0.1 x10^3/uL (0.0-0.7) Basophils # (Auto) 0.0 x10^3/uL (0.0-0.2) Sodium Level 136 mmol/L (136-145) Potassium Level 3.8 mmol/L (3.5-5.1) Chloride Level 102 mmol/L (98-107) Carbon Dioxide Level 24 mmol/L (21-32) Anion Gap 10 (6-14) Blood Urea Nitrogen 10 mg/dL (7-20) Creatinine 0.7 mg/dL (0.6-1.0) Estimated GFR (Cockcroft-Gault) 125.5 BUN/Creatinine Ratio 14 (6-20) Glucose Level 90 mg/dL (70-99) Calcium Level 8.9 mg/dL (8.5-10.1) Total Bilirubin 1.2 mg/dL (0.2-1.0) H Aspartate Amino Transferase (AST) 22 U/L (15-37) Alanine Aminotransferase (ALT) 23 U/L (14-59) Alkaline Phosphatase 51 U/L (46-116) Total Protein 6.9 g/dL (6.4-8.2) Albumin 3.8 g/dL (3.4-5.0) Albumin/Globulin Ratio 1.2 (1.0-1.7) Lipase 95 U/L (73-393) Laboratory Tests 10/02/19 19:17 Laboratory Tests 10/02/19 19:17 Microbiology 10/02/19 Wet Prep - Final, Complete EKG EKG [] Radiology/Procedures Radiology/Procedures []PROCEDURE: PELVIS W/TV Exam: Ultrasound pelvis Indication: Pelvic pain Technique: Real-time grayscale and color Doppler images of the pelvis were obtained by the department development chemist. Comparisons: None FINDINGS: Uterus measures 8.3 x 4.0 x 3.7 cm. Endometrium is approximately 3 mm in thickness. Right ovary is complex in appearance measuring 6.6 x 6.8 x 5.8 cm. Vascular flow is noted within the right ovary. Left ovary measures 2.0 x 1.9 x 1.6 cm. Vascular flow is noted within the left ovary. Moderate amount of complex free fluid is seen in the pelvis. IMPRESSION: 1. Right ovary has an enlarged and complex appearance measuring 6.6 x 6.8 x 5.8 cm. Vascular flow is seen within the right ovary. 2. Moderate amount of complex free fluid in the pelvis. CT is recommended for further evaluation. 3. Normal sonographic appearance of the uterus and left ovary FOR INTERNAL CODING PURPOSES Critical result: Findings discussed with SHANNON TY at 10/02/2019 7:05 PM. RESULT CODE: (C) Electronically signed by: Louie Dumont MD (10/02/2019 7:07 PM) [id number] DICTATED and SIGNED BY: LOUIE DUMONT MD DATE: 10/02/191906 PROCEDURE: CT ABD PELV W/ IV CONTRST ONLY Exam: CT of abdomen and pelvis with contrast INDICATION: Pelvic pain TECHNIQUE: Sequential axial images through the pelvis obtained only the administration of 75 mL of Omni 300 IV contrast. Sagittal and coronal reformatted images were reconstructed from the axial data and reviewed. Comparisons: Ultrasound same day FINDINGS: Heart size is normal. No pericardial effusion. Visualized lung bases are clear. No pleural effusion. Liver, spleen, pancreas, gallbladder and adrenals are unremarkable. Kidneys demonstrate symmetric enhancement. No perinephric inflammation or hydronephrosis. No renal or ureteral calculi are identified. Bladder is decompressed not well evaluated. Uterus not enlarged. There is a 2 cm cystic lesion at the right adnexa, likely ovarian in etiology. There is redemonstration of enlarged right adnexal mass measuring up to 5.[address] Large and small bowel are unremarkable. Appendix is normal. No free intra-abdominal air. There is a small amount of free fluid noted within the pelvis. No free intra-abdominal air. Abdominal aorta has a normal course and caliber. Abdominal vasculature is patent. No enlarged abdominal lymph nodes are identified. No suspicious osseous lesions or acute fractures. IMPRESSION: Redemonstration of an enlarged right adnexal mass with internal cystic areas. There is only a small amount of free fluid in the pelvis. Findings could relate to intraovarian lesion/hemorrhagic cyst. Short-term follow-up ultrasound to reassess in 3-4 weeks is recommended. Alternatively MRI pelvis with coronal can BE used for follow-up. Exposure: One or more of the following in the visualized dose reduction techniques were utilized for this examination: 1. Automated exposure control 2. Adjustment of the MA and/or KV according to patient size 3. Use of iterative of reconstructive technique Electronically signed by: Louie Dumont MD (10/02/2019 8:15 PM) [id number] DICTATED and SIGNED BY: LOUIE DUMONT MD DATE: 10/02/192014 Course & Med Decision Making Course & Med Decision Making Pertinent Labs and Imaging studies reviewed. (See chart for details) This is a 24 year old female presenting to the ED today complaining of "pelvic b one pain" since yesterday. Patient noted for moderate CMT on exam, was given standard STD treatment. Pelvic ultrasound noted for -Right ovary has an enlarged and complex appearance measuring 6.6 x 6.8x 5.8 cm. Vascular flow is seen within the right ovary. Moderate amount of complex free fluid in the pelvis. CT is recommended for further evaluation. Normal sonographic appearance of the uterus and left ovary Radiologist called me regarding patient's ultrasound requesting a CAT scan with IV contrast. CT of the abdomen and pelvic -redemonstration of an enlarged right adnexal mass with internal cystic areas. There is only a small amount of free fluid in the pelvis. Findings could relate to intraovarian lesion/hemorrhagic cyst. Short- term follow-up ultrasound to reassess in 3-4 weeks is recommended. Alternatively MRI pelvis with coronal can BE used for follow-up. Above results were discussed with patient. Recommended close follow-up with the [facility] Duy Disclaimer Dragon Disclaimer This electronic medical record was generated, in whole or in part, using a voice recognition dictation system. Departure Departure Impression: Primary Impression: Hemorrhagic cyst of right ovary Disposition: HOME, SELF-CARE Condition: STABLE Referrals: UNKNOWN PCP NAME (PCP) Please follow up with your OBGYN in 1-2 weeks PRIMO WELDON MD Patient Instructions: Ovarian Cyst Additional Instructions: You were evaluated in the emergency room and noted to have a right cyst. Follow-up with the provided [facility] in the next 4 to 6 weeks for a follow-up ultrasound to see if this cyst cleared out. Take the prescribed pain medicine as needed. Scripts Tramadol Hcl (TRAMADOL HCL) 50 Mg Tablet 50 MG PO Q6HRS PRN for PAIN, #20 TAB Prov: SHANNON TY APRN 10/02/19 SHANNON TY APRN Oct 02, 2019:14
[2019-10-02 21:27] VITALS: BP 128/62
== END 2019-10-02 21:35 | disposition home or self-care (01) ==
LOC: ER 15:59
DX: N83.201 Unspecified ovarian cyst, right side (principal)
CPT/HCPCS: 74177; 76830; 76856; 80053; 80307; 81001; 81025; 83690; 85025; 87086; 87491; 87591; 96372; 96374; 96375; 99285; J0696; J2270; J2405; Q0111; Q9967; Q0162

== ENCOUNTER 2020-06-14 16:04 | Emergency (ER) | payer OTHER ==
[~2020-06-14] VITALS: Ht 170.2 cm; Wt 90.0 kg
[~2020-06-14 16:04] MED LIST changes: +TRAM50TA PO
[2020-06-14 16:30] VITALS: BP 120/65
[2020-06-14 16:31] LABS: BILIRUBIN,URINE NEGATIVE (NEG); CLARITY,URINE CLEAR; COLOR,URINE YELLOW; NITRITE,URINE NEGATIVE (NEG); PROTEIN,URINE NEGATIVE (NEG-TRACE)
[2020-06-14 16:43] LABS: BACTERIA,URINE MOD /HPF (0-FEW); RBC,URINE OCC /HPF (0-2)
--- NOTE | 2020-06-14 17:58 | PHYS DOC ---
Past Medical History Past Medical History: No Pertinent History Past Surgical History: No Surgical History Smoking Status: Never Smoker Alcohol Use: Occasionally Drug Use: Marijuana General Adult EDM: Chief Complaint: PAIN ON URINATION HPI: HPI: Patient is a 25 year old female 2 para 1 currently 4 months presenting to the ED today complaining of vaginal discharge for 2 weeks. Patient denies any abdominal pain or bleeding. She states she follows up with her OB for her . Denies any concerns for STDs. Review of Systems: Review of Systems: Constitutional: Denies fever or chills. [] GI: Reports vaginal discharge. Denies abdominal pain, nausea, vomiting, bloody stools or diarrhea. [] : Denies dysuria. [] Musculoskeletal: Denies back pain or joint pain. [] Integument: Denies rash. [] Neurologic: Denies headache, focal weakness or sensory changes. [] Psychiatric: Denies depression or anxiety. [] Heart Score: Risk Factors: Risk Factors: DM, Current or recent (<one month) smoker, HTN, HLP, family history of CAD, obesity. Risk Scores: Score 0 - 3: 2.5% MACE over next 6 weeks - Discharge Home Score 4 - 6: 20.3% MACE over next 6 weeks - Admit for Clinical Observation Score 7 - 10: 72.7% MACE over next 6 weeks - Early Invasive Strategies Allergies: Allergies: Allergies Coded Allergies Type Severity Reaction Last Updated Verified No Known Drug Allergies 11/03/15 No Physical Exam: PE: Constitutional: Well developed, well nourished, no acute distress, non-toxic appearance. [] Abdomen: Bowel sounds normal, soft, no tenderness, no masses, no pulsatile masses. [] Pelvic exam External pelvic appears normal, cervix is visualized, closed, no CMT, no adnexal tenderness, small amount of white discharge in the vaginal vault Skin: Warm, dry, no erythema, no rash. [] Back: No tenderness, no CVA tenderness. [] Extremities: No tenderness, no cyanosis, no clubbing, ROM intact, no edema. [] Neurologic: Alert and oriented X 3, normal motor function, normal sensory function, no focal deficits noted. [] Psychologic: Affect normal, judgement normal, mood normal. [] Current Patient Data: Labs: Laboratory Tests Test 06/14/20 16:08 06/14/20 16:24 Urine Collection Type Unknown Urine Color Yellow Urine Clarity Clear Urine pH 6.0 (<5.0-8.0) Urine Specific [place] 1.025 (1.000-1.030) Urine Protein Negative mg/dL (NEG-TRACE) Urine Glucose (UA) Negative mg/dL (NEG) Urine Ketones (Stick) Negative mg/dL (NEG) Urine Blood Negative (NEG) Urine Nitrite Negative (NEG) Urine Bilirubin Negative (NEG) Urine Urobilinogen Dipstick 1.0 mg/dL (0.2 mg/dL) Urine Leukocyte Esterase Negative (NEG) Urine RBC Occ /HPF (0-2) Urine WBC 1-4 /HPF (0-4) Urine Squamous Epithelial Cells Many /LPF Urine Bacteria Mod /HPF (0-FEW) Urine Mucus Mod /LPF POC Urine HCG, Qualitative Hcg positive (Negative) Microbiology 06/14/20 Wet Prep - Final, Complete EKG: EKG: [] Radiology/Procedures: Radiology/Procedures: [] Course & Med Decision Making: Course & Med Decision Making Pertinent Labs and Imaging studies reviewed. (See chart for details) This is a 25-year-old female patient presenting to the ED today with vaginal discharge for 2 weeks. She is currently 4 months and follows up with an [facility]. Wet prep positive for BV. UA negative for UTI. Discharged on Flagyl. Follow-up with [facility]. Duy Disclaimer: Duy Disclaimer: This electronic medical record was generated, in whole or in part, using a voice recognition dictation system. Departure Departure Impression: Primary Impression: Bacterial vaginosis Disposition: 01 [place] HOME SELF CARE/HOMELESS Condition: STABLE Referrals: UNKNOWN PCP NAME (PCP) follow up with your OBGYN in 1 week Patient Instructions: Bacterial Vaginosis, [id number] Additional Instructions: You have bacterial vaginosis which is causing you some of the discharge. We will put you on antibiotics, ensure you complete them. Follow-up with your [facility] in the next 7 days Scripts Metronidazole (FLAGYL) 500 Mg Tablet 1 TAB PO BID, #14 TAB Prov: SENIADeanSHANNON APRN 06/14/20 SHANNON TY APRN Jun 14, 2020 17:58
[2020-06-14] MEDS ORDERED: METR500T PO (18:07)
== END 2020-06-14 18:17 | disposition home or self-care (01) ==
LOC: ER 16:04
DX: O23.592 Infection of other part of genital tract in pregnancy, second trimester (principal); B96.89 Other specified bacterial agents as the cause of diseases classified elsewhere; Z3A.16 16 weeks gestation of pregnancy
CPT/HCPCS: 81001; 81025; 87491; 87591; 99284; Q0111